=== PATIENT | male | born 1970 ===

== ENCOUNTER 2021-05-03 21:46 | Emergency (ER) | payer SELFPAY ==
[2021-05-04 15:13] LABS: SARS-CoV-2 PCR by NAA Not Detected (NotDetected)
== END 2021-05-03 22:36 | disposition home or self-care (01) ==
LOC: ERS 21:46
DX: Z20.822 Contact with and (suspected) exposure to COVID-19 (principal)
CPT/HCPCS: 99283; U0003; U0005